=== PATIENT | male | born 1975 | race Hispanic/Latino ===

== ENCOUNTER 2016-10-16 21:04 | Emergency (ER) | payer OTHER ==
[2016-10-16 21:55] VITALS: BP 108/71
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
[2016-10-17] MEDS ORDERED: DILAUDID IM ONE ×2 (00:15→02:16)
[2016-10-17] MEDS ORDERED: NACL 0.9% IR ONE (00:15)
[2016-10-17] MEDS ORDERED: ZOFRAN ODT PO ONE (00:15)
[2016-10-17] MEDS ORDERED: NACL 0.9% 500 ML IR ONE (00:18)
[2016-10-17] MEDS ORDERED: ANCEF IM ONE (00:44)
[2016-10-17] MEDS ORDERED: MARCAINE 0.5% INFILTRATI NR (01:00)
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
[2016-10-17] MEDS ORDERED: ZOFRAN ORAL LIQ PO ONE (02:16)
== END 2016-10-17 02:45 | disposition home or self-care (01) ==
LOC: ED 21:04
DX: S81.012A Laceration without foreign body, left knee, initial encounter (principal); F12.10 Cannabis abuse, uncomplicated; M25.50 Pain in unspecified joint; R07.81 Pleurodynia; F17.200 Nicotine dependence, unspecified, uncomplicated; V29.9XXA Motorcycle rider (driver) (passenger) injured in unspecified traffic accident, initial encounter; Y93.89 Activity, other specified; Y92.89 Other specified places as the place of occurrence of the external cause; Y99.8 Other external cause status
CPT/HCPCS: 12002; 71101; 73030; 73562; 96372; 99283; J0690; J1170; Q0162